=== PATIENT | male | born 1995 | race Hispanic/Latino ===

== ENCOUNTER 2025-01-17 21:24 | Emergency (ER) | payer SELFPAY ==
[~2025-01-17] VITALS: Ht 160 cm; Wt 97.5 kg
[2025-01-18 00:32] VITALS: PULSE 77; RESP 20; TEMP 98.9
[2025-01-18 00:34] VITALS: BP 136/98; PULSE 77; RESP 20; TEMP 97.8; O2SAT 98
== END 2025-01-18 00:37 | disposition home or self-care (01) ==
LOC: FSED 21:28
DX: S92.411A Displaced fracture of proximal phalanx of right great toe, initial encounter for closed fracture (principal); X50.1XXA Overexertion from prolonged static or awkward postures, initial encounter; Y93.01 Activity, walking, marching and hiking; I10 Essential (primary) hypertension; E11.9 Type 2 diabetes mellitus without complications; E66.9 Obesity, unspecified
CPT/HCPCS: 99284